=== PATIENT | female | born 1970 | race Caucasian/White ===

== ENCOUNTER 2019-02-02 16:48 | Outpatient (REF) | payer BC, SELFPAY ==
[2019-02-02 18:08] LABS: Abs Immature Grans 0.02 k/cumm (0.0-0.09); Absolute Basophil Count 0.05 k/cumm (0.0-0.2); Absolute Eosinophil Count 0.09 k/cumm (0.0-0.7); Absolute Monocyte Count 0.72 k/cumm (0.11-0.7); Absolute Neutrophil Count 5.81 k/cumm (1.2-6.7); Basophils % 0.6; HCT 45.4 % (36.0-46.0); HGB 14.8 g/dL (12.0-15.5); Immature Grans % 0.2; Lymphocytes % 24.7; Mean Corp. HGB Concentration 32.6 g/dL (32.0-36.0); Mean Corpuscular Hemoglobin 30.3 pg (27.0-33.0); Mean Platelet Volume 10.9 fL (8.0-11.0); Monocytes % 8.1; Neutrophils % 65.4; Platelet Count 446 x1000/uL (130-400); RBC 4.88 m/cumm (4.00-5.20); RBC Distribution Width 13.8 % (11.7-14.6); White Blood Cell Count 8.89 k/cumm (4.4-10.8)
[2019-02-02 18:15] LABS: Anion Gap 6.4 mmol/L (3-11); BUN 11 mg/dL (7-18); CO2 28.6 mmol/L (21.0-32.0); CREATININE 0.79 mg/dL (0.55-1.02); Calcium 9.2 mg/dL (8.5-10.1); Chloride 100 mmol/L (98-107); Glucose 82 mg/dL (70-100); Potassium 5.3 mmol/L (3.5-5.1); Sodium 135 mmol/L (136-145)
== END 2019-02-02 17:08 ==
LOC: NCHCN 16:48
PROVIDERS: PCP Family Medicine; Visit Provider Internal Medicine
DX: R50.9 Fever, unspecified (principal); I10 Essential (primary) hypertension; M79.10 Myalgia, unspecified site
CPT/HCPCS: 80048; 85025

== ENCOUNTER 2019-02-23 14:08 | Outpatient (REF) | payer BC, SELFPAY ==
[2019-02-23 21:31] LABS: Abs Immature Grans 0.01 k/cumm (0.0-0.09); Absolute Basophil Count 0.02 k/cumm (0.0-0.2); Absolute Eosinophil Count 0.07 k/cumm (0.0-0.7); Absolute Lymphocyte Count 1.84 k/cumm (1.2-3.4); Absolute Monocyte Count 0.52 k/cumm (0.11-0.7); Absolute Neutrophil Count 4.76 k/cumm (1.2-6.7); Basophils % 0.3; HCT 43.8 % (36.0-46.0); HGB 14.1 g/dL (12.0-15.5); Immature Grans % 0.1; Lymphocytes % 25.5; Mean Corp. HGB Concentration 32.2 g/dL (32.0-36.0); Mean Corpuscular Hemoglobin 30.2 pg (27.0-33.0); Mean Corpuscular Volume 93.8 fL (80-95); Monocytes % 7.2; Neutrophils % 65.9; Platelet Count 338 x1000/uL (130-400); RBC 4.67 m/cumm (4.00-5.20); RBC Distribution Width 14.3 % (11.7-14.6); White Blood Cell Count 7.22 k/cumm (4.4-10.8)
[2019-02-23 21:51] LABS: Hemoglobin A1C 5.6 % (4.5-6.2)
[2019-02-23 22:15] LABS: Anion Gap 6.1 mmol/L (3-11); BUN 13 mg/dL (7-18); CO2 29.9 mmol/L (21.0-32.0); CREATININE 0.83 mg/dL (0.55-1.02); Chloride 103 mmol/L (98-107); Cholesterol 171 mg/dL (50-200); Glucose 93 mg/dL (70-100); HDL Cholesterol 45 mg/dL (40-60); LDL CHOLESTEROL 106 mg/dL (<100); Magnesium 2.1 mg/dL (1.8-2.4); Potassium 4.4 mmol/L (3.5-5.1); Sodium 139 mmol/L (136-145); TSH (W/Ref FT4) 0.95 uIU/mL (0.358-3.74); Triglyceride 69 mg/dL (30-150); Vitamin B12 421 pg/mL (193-986)
== END 2019-02-23 14:28 ==
LOC: NCHCN 14:08
PROVIDERS: PCP Family Medicine; Visit Provider Family Medicine
DX: Z00.00 Encounter for general adult medical examination without abnormal findings (principal); I10 Essential (primary) hypertension; R20.2 Paresthesia of skin; N92.0 Excessive and frequent menstruation with regular cycle; K59.00 Constipation, unspecified; E66.9 Obesity, unspecified
CPT/HCPCS: 80048; 80061; 83721; 82607; 83036; 83735; 84443; 85025

== ENCOUNTER 2020-06-10 11:38 | Outpatient (REF) | payer BC, SELFPAY ==
[2020-06-10 21:41] LABS: ALT 22 U/L (14-59); AST 13 U/L (15-37); Albumin 3.9 g/dL (3.4-5.0); Alkaline Phosphatase 56 U/L (46-116); Anion Gap 8.2 mmol/L (3-11); BUN 10 mg/dL (7-18); Bilirubin, Total 0.3 mg/dL (0.2-1.0); CO2 27.8 mmol/L (21.0-32.0); CREATININE 0.86 mg/dL (0.55-1.02); Calcium 9.1 mg/dL (8.5-10.1); Calculated LDL 149 mg/dL (<100); Chloride 103 mmol/L (98-107); Cholesterol 223 mg/dL (<200); Glucose 90 mg/dL (74-106); HDL Cholesterol 45 mg/dL (40-60); Potassium 4.4 mmol/L (3.5-5.1); Sodium 139 mmol/L (136-145); Total Protein 7.3 g/dL (6.4-8.2); Triglyceride 146 mg/dL (<150)
[2020-06-13 13:11] LABS: TSH (W/Ref FT4) 2.54 uIU/mL (0.36-3.74)
== END 2020-06-10 11:58 ==
LOC: NCHCN 11:38
PROVIDERS: PCP Family Medicine; Visit Provider Family Medicine
DX: E66.3 Overweight (principal); Z00.00 Encounter for general adult medical examination without abnormal findings
CPT/HCPCS: 80053; 80061; 84443

== ENCOUNTER 2020-09-29 14:06 | Outpatient (REF) | payer BC, SELFPAY ==
[2020-10-02 16:58] LABS: SARS-CoV-2 RNA Undetected (Undetected); SARS-CoV-2 Specimen Source Nasal
== END 2020-09-29 14:26 ==
LOC: NCHCN 14:06
PROVIDERS: PCP Family Medicine; Visit Provider Nurse Practitioner Family
DX: J06.9 Acute upper respiratory infection, unspecified (principal)
CPT/HCPCS: U0003

== ENCOUNTER 2021-11-30 08:00 | Outpatient (REF) | payer BC, SELFPAY ==
[2021-11-30 16:22] LABS: ALT 25 U/L (14-59); AST 15 U/L (15-37); Albumin 3.7 g/dL (3.4-5.0); Alkaline Phosphatase 57 U/L (46-116); Anion Gap 8.2 mmol/L (3-11); BUN 13 mg/dL (7-18); Bilirubin, Total 0.2 mg/dL (0.2-1.0); CO2 26.8 mmol/L (21.0-32.0); CREATININE 0.9 mg/dL (0.55-1.02); Calcium 8.7 mg/dL (8.5-10.1); Calculated LDL 139 mg/dL (<100); Chloride 102 mmol/L (98-107); Cholesterol 199 mg/dL (<200); Glucose 98 mg/dL (74-106); HDL Cholesterol 46 mg/dL (40-60); Potassium 4.6 mmol/L (3.5-5.1); Sodium 137 mmol/L (136-145); Total Protein 7.1 g/dL (6.4-8.2); Triglyceride 70 mg/dL (<150)
[2021-11-30 16:34] LABS: Vitamin D 25 Total 34.1 ng/mL (30-100)
== END 2021-11-30 08:01 | disposition home or self-care (01) ==
LOC: NCHCN 08:00
PROVIDERS: PCP Family Medicine; Visit Provider Family Medicine
DX: I10 Essential (primary) hypertension (principal); E78.5 Hyperlipidemia, unspecified; E66.9 Obesity, unspecified; Z00.00 Encounter for general adult medical examination without abnormal findings
CPT/HCPCS: 80053; 80061; 82306

== ENCOUNTER 2023-03-03 16:57 | Outpatient (REF) | payer MEDICAID, SELFPAY ==
--- NOTE | 2023-03-03 16:30 | PAPFT_PTH ---
PATIENT: Priyanka Lucero LOC: [facility]#:[id number] AGE/SX: 52/F ROOM: RE03/03/[address]: Cory Vega : 1970 BED: DIS: 03/03/2023 SPEC #: [id number] RECD: 03/04/23 13:02 STATUS: AUDREY REQ #: [id number] PAZ: 03/03/23 16:[address]: Cory Vega DEPT: [facility] Cytology RECD BY: María Amor ENTERED: 03/04/23 13:02 SP TYPE: PAPFT OTHR DR: Bob Reynaga Tissues: 1 - CX/ENDOCX FOR PAP SMEARS Procedures: PAP THIN PREP/[facility] Screening HPV DNA PROBE Comments: [id number]
[2023-03-03 21:57] LABS: Anion Gap 8.2 mmol/L (3-11); BUN 17 mg/dL (7-18); CO2 25.8 mmol/L (21.0-32.0); Chloride 103 mmol/L (98-107); Estimated GFR 68.21 (mL/min/1.73m2); Glucose 112 mg/dL (74-106); Potassium 4.3 mmol/L (3.5-5.1); Sodium 137 mmol/L (136-145)
== END 2023-03-03 16:58 | disposition home or self-care (01) ==
LOC: NCHCN 16:57
PROVIDERS: PCP Family Medicine; Visit Provider Family Medicine
DX: I10 Essential (primary) hypertension (principal); Z12.4 Encounter for screening for malignant neoplasm of cervix; Z11.51 Encounter for screening for human papillomavirus (HPV)
CPT/HCPCS: 80048; 88142; 87624

== ENCOUNTER 2024-04-11 16:57 | Outpatient (REF) | payer OTHER, SELFPAY | END 2024-04-11 16:58 | disposition home or self-care (01) | LOC: NCHCN 16:57 | PROVIDERS: PCP Family Medicine; Visit Provider Family Medicine | DX: R10.31 Right lower quadrant pain (principal) | CPT/HCPCS: 87086 ==

== ENCOUNTER 2024-04-27 15:52 | Outpatient (REF) | payer OTHER, SELFPAY ==
--- OUTSIDE RECORDS SUMMARY | 2024-04-27 15:55 | XMS_ITS ---
Author Name Unknown Address [address], [place] [phone] Phone Organization Unknown Address [address] [place] [phone] Phone Care Team Providers Care Manager Equity Name Role Phone MARIN Mcclain Attending Unavailable Social History Type Status Start Date End Date Code Code Syst em Smoking History Never smoker (Never Smoked) [id number] SNOMED CT Sex Female Hospital Discharge Instructions Should you have any questions prior to discharge, please contact a member of your healthcare team. If you have left the hospital and have any questions, please contact your primary care physician. Reason For Referral No Data Found Plan of Treatment Symptoms 07/28/2021 Encounters Encounter Diagnosis Start Date Code Code Sys tem Pain in left knee 06/22/2023 SNOMED-CT Personal Care Team Section Performer Name Performer Role Active Date Inactive Da te
--- OUTSIDE RECORDS SUMMARY | 2024-04-27 15:55 | XMS_ITS ---
Author Name Unknown Address [address], [place] [phone] Phone Organization Unknown Address [address] [place] [phone] Phone Care Team Providers Care Tongsman Name Role Phone SKY De Luna Attending Unavailable MARIN Mcclain Primary Unavailable Social History Type Status Start Date End Date Code Code Syst em Smoking History Never smoker (Never Smoked) [id number] SNOMED CT Sex Female Hospital Discharge Instructions Should you have any questions prior to discharge, please contact a member of your healthcare team. If you have left the hospital and have any questions, please contact your primary care physician. Reason For Referral No Data Found Plan of Treatment Symptoms 07/28/2021 Encounters Encounter Diagnosis Start Date Code Code Sys tem Other forms of dyspnea 05/07/2022 SNOME D-CT Personal Care Team Section Performer Name Performer Role Active Date Inactive Da te
--- OUTSIDE RECORDS SUMMARY | 2024-04-27 15:56 | XMS_ITS ---
Author Name Unknown Address [address], [place] [phone] Phone Organization Unknown Address [address] [place] [phone] Phone Care Team Providers Care Plant Safety Engineer Name Role Phone MARIN COTTON MD Attending Unavailable Results GARETT GOLDIE ANGELESX - Colle ct Date/Time: 07/28/2021 11:00 [facility] ID: [id number] - [id number] [address] [place] [address], [id number] LOINC: 11933-3 Test Value Unit Reference Range Code Code System Flag SOURCE= Anterior nasal Tier- SYMPTOMS SARS COV2 RNA: NEGATIVE REFERENCE RAN GE: NEGAT 66837-0 LOINC Social History Type Status Start Date End Date Code Code Syst em Smoking History Never smoker (Never Smoked) [id number] SNOMED CT Sex Female Hospital Discharge Instructions Should you have any questions prior to discharge, please contact a member of your healthcare team. If you have left the hospital and have any questions, please contact your primary care physician. Reason For Referral No Data Found Plan of Treatment Symptoms 07/28/2021 Encounters Encounter Diagnosis Start Date Code Code Sys tem CONTACT WITH AND SUSPECTED EXPOSURE TO COVID-19 2020 SNOMED-CT Personal Care Team Section Performer Name Performer Role Active Date Inactive Da te
[2024-04-27 21:13] LABS: BUN 16 mg/dL (7-18); Calcium 9.5 mg/dL (8.5-10.1); Calculated LDL 160 mg/dL (<100); Chloride 102 mmol/L (98-107); Cholesterol 250 mg/dL (<200); Estimated GFR 67.78 (mL/min/1.73m2); Glucose 114 mg/dL (74-106); HDL Cholesterol 43 mg/dL (40-60); Potassium 3.8 mmol/L (3.5-5.1); Sodium 139 mmol/L (136-145); Triglyceride 238 mg/dL (<150)
[2024-04-27 21:15] LABS: Hemoglobin A1C 5.8 % (<5.7)
== END 2024-04-27 15:53 | disposition home or self-care (01) ==
LOC: NCHCN 15:52
PROVIDERS: PCP Family Medicine; Visit Provider Family Medicine
DX: E78.5 Hyperlipidemia, unspecified (principal); I10 Essential (primary) hypertension; Z13.1 Encounter for screening for diabetes mellitus
CPT/HCPCS: 80048; 80061; 83036

== ENCOUNTER 2024-10-22 08:30 | Outpatient (REF) | payer OTHER, SELFPAY ==
[2024-10-22 16:04] LABS: Hemoglobin A1C 5.8 % (<5.7)
[2024-10-22 16:45] LABS: ALT 30 U/L (14-59); AST 22 U/L (15-37); Albumin 4.2 g/dL (3.4-5.0); Alkaline Phosphatase 79 U/L (46-116); Anion Gap 9.4 mmol/L (3-11); BUN 19 mg/dL (7-18); Bilirubin, Total 0.53 mg/dL (0.2-1.0); CO2 27.6 mmol/L (21.0-32.0); Calculated LDL 214 mg/dL (<100); Chloride 105 mmol/L (98-107); Cholesterol 292 mg/dL (<200); Estimated GFR 67.36 (mL/min/1.73m2); Glucose 104 mg/dL (74-106); HDL Cholesterol 53 mg/dL (40-60); Potassium 4.8 mmol/L (3.5-5.1); Sodium 142 mmol/L (136-145); Total Protein 8.8 g/dL (6.4-8.2); Triglyceride 127 mg/dL (<150)
== END 2024-10-22 08:31 | disposition home or self-care (01) ==
LOC: NCHCN 08:30
PROVIDERS: PCP Family Medicine; Visit Provider Family Medicine
DX: I10 Essential (primary) hypertension (principal); E78.5 Hyperlipidemia, unspecified; R73.9 Hyperglycemia, unspecified
CPT/HCPCS: 80053; 80061; 83036

== ENCOUNTER 2025-05-01 08:01 | Outpatient (REF) | payer OTHER, SELFPAY ==
[2025-05-01 15:38] LABS: ALT 24 U/L (14-59); AST 19 U/L (15-37); Alkaline Phosphatase 71 U/L (46-116); Anion Gap 8.3 mmol/L (3-11); BUN 18 mg/dL (7-18); Bilirubin, Total 0.4 mg/dL (0.2-1.0); CO2 26.7 mmol/L (21.0-32.0); Calculated LDL 174 mg/dL (<100); Chloride 103 mmol/L (98-107); Cholesterol 253 mg/dL (<200); Estimated GFR 67.36 (mL/min/1.73m2); Glucose 94 mg/dL (74-106); HDL Cholesterol 48 mg/dL (>or=50); Potassium 4.2 mmol/L (3.5-5.1); Sodium 138 mmol/L (136-145); Triglyceride 157 mg/dL (<150)
[2025-05-01 16:36] LABS: Hemoglobin A1C 5.8 % (<5.7)
== END 2025-05-01 08:02 | disposition home or self-care (01) ==
LOC: NCHCN 08:01
PROVIDERS: PCP Family Medicine; Visit Provider Family Medicine
DX: Z82.49 Family history of ischemic heart disease and other diseases of the circulatory system (principal); R73.9 Hyperglycemia, unspecified
CPT/HCPCS: 80053; 80061; 83036